=== PATIENT | female | born 2005 | race Caucasian/White ===

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

== ENCOUNTER 2024-01-16 15:24 | Emergency (ER) | payer OTHER ==
[2024-01-16 15:34] VITALS: RESP 16
--- NOTE | 2024-01-16 16:03 | ED ---
ENT HPI - General Chief complaint: ENT Stated complaint: sore throat Time Seen by Provider: 01/16/24 16:02 Source: patient, RN notes reviewed Mode of arrival: ambulatory Limitations: no limitations - History of Present Illness Initial comments: 18-year-old female presenting to the ER with chief complaint of sore throat x 1 week. Reports sibling was recently diagnosed with COVID-19 and strep. She is able to swallow. Denies fever, sinus congestion, cough. - Related Data Home Medications Medication Instructions Recorded Confirmed Cetirizine HCl 10 mg PO BID 03/21/22 03/31/22 Medroxyprogesterone Acetate 150 mg IM Q90D 03/31/22 03/31/22 [Depo-Provera] Previous Rx's Medication Instructions Recorded methylPREDNISolone Dose Pack 4 mg PO DIRECTED #1 packet 01/19/23 [Medrol Dose Pack] predniSONE 50 mg PO DAILY #5 tab 01/30/23 methylPREDNISolone Dose Pack 4 mg PO DIRECTED #1 packet 03/14/23 [Medrol Dose Pack] diphenhydrAMINE [Benadryl] 25 mg PO TID PRN #21 capsule 04/01/23 methylPREDNISolone Dose Pack 4 mg PO DIRECTED #21 packet 04/01/23 [Medrol Dose Pack] Cyclobenzaprine [Flexeril] 5 mg PO TID PRN #15 tablet 05/24/23 Ibuprofen 400 mg PO Q6HR #20 tablet 05/24/23 predniSONE 50 mg PO DAILY #5 tab 05/24/23 Amoxicillin 500 mg PO Q8H #30 capsule 08/01/23 Amoxicillin 500 mg PO Q12HR 10 Days #20 capsule 01/16/24 Allergies Allergy/AdvReac Type Severity Reaction Status Date / Time onion Allergy tongue Verified 01/16/24 15:34 swelling & hives Review of Systems ROS Statement: Those systems with pertinent positive or pertinent negative responses have been documented in the HPI. ROS Other: All systems not noted in ROS Statement are negative. Past Medical History Past Medical History: No Reported History History of Any Multi-Drug Resistant Organisms: None Reported Past Surgical History: No Surgical Hx Reported Past Psychological History: Anxiety, Depression Past Drug Use History: None Reported General Exam Limitations: no limitations General appearance: alert, in no apparent distress Head exam: Present: atraumatic, normocephalic, normal inspection Eye exam: Present: normal appearance, PERRL, EOMI. Absent: scleral icterus, conjunctival injection, periorbital swelling ENT exam: Present: mucous membranes moist. Absent: normal oropharynx (Tonsils 2+ and erythematous with bilateral exudate. Uvula midline) Neck exam: Present: normal inspection, lymphadenopathy (Anterior cervical lymph nodes present). Absent: tenderness, meningismus Respiratory exam: Present: normal lung sounds bilaterally. Absent: respiratory distress, wheezes, rales, rhonchi, stridor Cardiovascular Exam: Present: regular rate, normal rhythm, normal heart sounds. Absent: systolic murmur, diastolic murmur, rubs, gallop, clicks Neurological exam: Present: alert, oriented X3 Psychiatric exam: Present: normal affect, normal mood Skin exam: Present: warm, dry, intact, normal color. Absent: rash Course Vital Signs 01/16/24 01/16/24 15:31 17:45 Temperature 97.8 F 97.9 F Pulse Rate 88 81 Respiratory 16 16 Rate Blood Pressure 120/80 120/77 O2 Sat by Pulse 100 100 Oximetry Medical Decision Making - Medical Decision Making Was pt. sent in by a medical professional or institution (, PA, [employer]ANT MAINTENANCE WORKER, urgent care, hospital, or custodial...) When possible be specific @ -No Did you speak to anyone other than the patient for history (EMS, parent, family, police, friend...)? What history was obtained from this source @ -No Did you review nursing and triage notes (agree or disagree)? Why? @ -I reviewed and agree with nursing and triage notes Were old charts reviewed (outside hosp., previous admission, EMS record, old EKG, old radiological studies, urgent care reports/EKG's, custodial records)? Report findings @ -No old charts were reviewed Differential Diagnosis (chest pain, altered mental status, abdominal pain women, abdominal pain men, vaginal bleeding, weakness, fever, dyspnea, syncope, headache, dizziness, GI bleed, back pain, seizure, CVA, palpatations, mental hea lth, musculoskeletal)? @ -Strep pharyngitis, viral URI, mono, COVID, influenza EKG interpreted by me (3pts min.). @ -None X-rays interpreted by me (1pt min.). @ -None done CT interpreted by me (1pt min.). @ -None done U/S interpreted by me (1pt. min.). @ -None done What testing was considered but not performed or refused? (CT, X-rays, U/S, labs)? Why? @ -None What meds were considered but not given or refused? Why? @ -None Did you discuss the management of the patient with other professionals (professionals i.e. Dr., PA, PLANT MAINTENANCE WORKER, lab, RT, psych nurse, addiction social worker, take down inspector, teacher, supply requirements officer, protective services case worker)? Give summary @ -No Was smoking cessation discussed for >3mins.? @ -No Was critical care preformed (if so, how long)? @ -No Were there social determinants of health that impacted care today? How? (Homelessness, low income, unemployed, alcoholism, drug addiction, transportation, low edu. Level, literacy, decrease access to med. care, half-way, rehab)? @ -No Was there de-escalation of care discussed even if they declined (Discuss DNR or withdrawal of care, Hospice)? DNR status @ -No What co-morbidities impacted this encounter? (DM, HTN, Smoking, COPD, CAD, Cancer, CVA, ARF, Chemo, Hep., AIDS, mental health diagnosis, sleep apnea, morbid obesity)? @ -None Was patient admitted / discharged? Hospital course, mention meds given and route, prescriptions, significant lab abnormalities, going to OR and other pertinent info. @ -Discharge. This is a 12-year-old female presenting to the ER with sore throat x 1 week. Patient is able to swallow, no red flag symptoms. Vital signs are within acceptable limits. Physical examination remarkable for bilateral tonsillar erythema with exudate. Positive anterior cervical lymph nodes. Strep swab negative, Cepheid negative. Due to positive exposure of strep as well as bilateral tonsillar exudate and anterior lymph nodes, I will treat as strep pharyngitis. Will prescribe amoxicillin course to pharmacy. Supportive care discussed including hot fluids and replace toothbrush after course of antibiotics. All questions answered at bedside. Case was discussed with my ED attending Dr. Fernandez. Patient discharged in stable condition. Undiagnosed new problem with uncertain prognosis? @ -No Drug Therapy requiring intensive monitoring for toxicity (Heparin, Nitro, Insulin, Cardizem)? @ -No Were any procedures done? @ -No Diagnosis/symptom? @ -Strep pharyngitis Acute, or Chronic, or Acute on Chronic? @ -Acute Uncomplicated (without systemic symptoms) or Complicated (systemic symptoms)? @ -Uncomplicated Side effects of treatment? @ -No Exacerbation, Progression, or Severe Exacerbation? @ -No Poses a threat to life or bodily function? How? (Chest pain, [place], [place], pneumonia, PE, COPD, DKA, ARF, appy, cholecystitis, CVA, Diverticulitis, Homicidal, Suicidal, threat to staff... and all critical care pts) @ -No - Lab Data Lab Results 01/16/24 01/16/24 Range/Units 16:06 16:06 Influenza Type A (PCR) Not Detected (Not Detectd) Influenza Type B (PCR) Not Detected (Not Detectd) RSV (PCR) Not Detected (Not Detectd) SARS-CoV-2 (PCR) Not Detected (Not Detectd) Group A Strep (PCR) NOT DETECTED (Not Detectd) Disposition Clinical Impression: Strep pharyngitis Disposition: HOME SELF-CARE Condition: Stable Instructions (If sedation given, give patient instructions): Strep Throat (ED) Additional Instructions: Take amoxicillin twice daily for 10 days. Drink plenty of fluids. Replace toothbrush at end of antibiotic course. Please return to the Emergency Department if symptoms worsen or any other concerns. Prescriptions: Amoxicillin 500 mg PO Q12HR 10 Days #20 capsule Is patient prescribed a controlled substance at d/c from ED?: No Referrals: Malvin Mendiola MD [Primary Care Provider] - 1-2 days Time of Disposition: 17:39
[2024-01-16] MEDS: IBUPROFEN 600 MG TAB PO STA (16:09)
[2024-01-16 17:47] VITALS: BP 120/77; PULSE 81; TEMP 97.9
== END 2024-01-16 17:47 | disposition home or self-care (01) ==
LOC: EC 15:24
DX: J02.0 Streptococcal pharyngitis (principal); Z91.018 Allergy to other foods
CPT/HCPCS: 87636; 87651; 99283

== ENCOUNTER → 2024-07-24 | Outpatient (CLI) | payer OTHER ==
[2024-07-24 10:21] LABS: Basophils # (A) 0.05 10*3/uL (0.00-0.10); Basophils % (A) 0.5 %; Eosinophils # (A) 0.03 10*3/uL (0.04-0.35); Eosinophils % (A) 0.3 %; HCT 40.6 % (37.2-46.3); Lymphocytes # (A) 1.78 10*3/uL (0.90-5.00); Lymphocytes % (A) 18.7 %; MCH 30.8 pg (27.0-32.0); MCHC 34.5 g/dL (32.0-37.0); MCV 89.2 fL (80.0-97.0); Mean Platelet Volume 10.3 fL (9.5-12.2); Monocytes # (A) 0.64 10*3/uL (0.20-1.00); Monocytes % (A) 6.7 %; Neutrophils % (A) 73.6 %; Platelet Count 278 10*3/uL (140-440); RBC 4.55 10*6/uL (4.10-5.20); RDW 11.9 % (11.5-14.5); WBC 9.52 10*3/uL (4.50-10.00)
[2024-07-24 16:21] LABS: Testosterone 58.8 ng/dL (9.01-47.94)
[2024-07-24 16:28] LABS: Follicle Stimulating Hormone 6.2 mIU/mL; Luteinizing Hormone 34.1 mIU/mL
== END | disposition home or self-care (01) ==
LOC: LABWHC1 09:45
PROVIDERS: ATTEND Midwife
DX: N91.2 Amenorrhea, unspecified (principal)
CPT/HCPCS: 36415; 82306; 83001; 83002; 84144; 84403; 84443; 85025